=== PATIENT | male | born 1960 | race Caucasian/White ===

== ENCOUNTER 2021-01-07 07:00 | Outpatient (RCR) | payer OTHER, SELFPAY ==
[2021-01-07] MEDS: COVID-19 VACC, MRNA(PFIZER)/PF 30 MCG/0.3 ML SYRINGE IM (12:27)
[2021-01-28] MEDS: COVID-19 VACC, MRNA(PFIZER)/PF 30 MCG/0.3 ML SYRINGE IM (12:21)
== END 2021-04-01 23:59 ==
LOC: IMMUN 07:00
PROVIDERS: PCP Family Medicine; Visit Provider Family Medicine
DX: Z23 Encounter for immunization (principal)
CPT/HCPCS: 0001A; 0002A; 91300